=== PATIENT | female | born 1945 | race Caucasian/White ===

== ENCOUNTER 2023-03-18 10:57 | Observation (INO) | payer MEDICARE ==
[2023-03-18 11:27] LABS: #Eosinphils 0.2 thou/uL (0.0-0.7); %Basophils 0.3 % (0.0-1.0); %Eosinophils 2.1 % (0.0-10.0); %Lymphocytes 11.3 % (21.0-51.0); %Monocytes 13.9 % (0.0-10.0); %Neutrophils 71.8 % (42.0-75.0); Hematocrit 20.5 % (36.0-47.0); Hemoglobin 6.3 g/dL (12.0-16.0); Mean Corpuscular HGB CONC 30.7 g/dL (32.0-36.0); Mean Corpuscular Hemoglobin 32.3 pg (27.0-31.0); Mean Corpuscular Volume 105.1 fl (78.0-98.0); Mean Platelet Volume 9.1 fL (7.4-10.4); Platelet Count 224 10x3/uL (130-400); RBC Distribution Width 18.6 % (11.5-14.5); Red Blood Cell (RBC) Count 1.95 mill/uL (4.20-5.40)
[2023-03-18 11:50] LABS: ALT (SGPT) 14 U/L (8-55); AST (SGOT) 15 U/L (5-34); Albumin 3.5 g/dL (3.4-4.8); Alkaline Phosphatase 77 U/L (40-110); Anion Gap 11 mmol/L (10-20); BUN (Urea Nitrogen) 11 mg/dL (9.8-20.1); Bilirubin, Total 0.4 mg/dL (0.2-1.2); Calc. Creatinine Clearance 0 mL/min (70-130); Calcium 8.4 mg/dL (7.8-10.44); Carbon Dioxide 35 mmol/L (23-31); Chloride 97 mmol/L (98-107); Estimated GFR 32; Globulin 2.4 g/dL (2.4-3.5); Glucose 137 mg/dL (83-110); Potassium 3.2 mmol/L (3.5-5.1); Protein, Total 5.9 g/dL (5.8-8.1); Sodium 140 mmol/L (136-145)
[2023-03-18 13:00] LABS: Troponin I 0.069 ng/mL (< 0.028)
[2023-03-18 13:03] LABS: Acetaminophen Less than 10 mcg/mL (10.0-30.0); Alcohol Less than 10.0 mg/dL (Less than 10); Lipase 50 U/L (8-78); Magnesium 1.9 mg/dL (1.6-2.6); Salicylate Less than 8.0 mg/dL (15.0-30.0)
[2023-03-18 16:44] LABS: Troponin I 0.055 ng/mL (< 0.028)
[2023-03-18] MEDS ORDERED: Acetaminophen 650 MG Suppository PR PRN (16:55)
[2023-03-18] MEDS ORDERED: Acetaminophen 325 MG TAB PO PRN (16:55)
[2023-03-18] MEDS ORDERED: Dextrose 5% in Water 1,000 ML IV PRN (16:58)
[2023-03-18] MEDS ORDERED: Glucagon 1 MG/ML KIT IM PRN (16:58)
[2023-03-18] MEDS ORDERED: HumaLOG 300 UNITS/3 ML VIAL SC PRN ×2 (16:58)
[2023-03-18] MEDS ORDERED: Dextrose 50% Abboject 50 ML SYRINGE SLOW IVP PRN (16:58)
[2023-03-18] MEDS ORDERED: Gabapentin 300 MG CAP PO SCH (17:45)
[2023-03-18] MEDS ORDERED: HYDROcodone/Acetaminophen 10/325 mg Tablet ONE (18:15)
[2023-03-18] MEDS ORDERED: Gabapentin 300 MG CAP ONE (18:15)
[2023-03-18] MEDS: HYDROcodone/Acetaminophen 10/325 mg Tablet PO PRN (18:19)
[2023-03-18 19:30] LABS: Hematocrit 24.3 % (36.0-47.0); Hemoglobin 7.6 g/dL (12.0-16.0)
[2023-03-18 19:38] LABS: Potassium 3.5 mmol/L (3.5-5.1)
[2023-03-18 20:37] VITALS: BMI 37.3
[2023-03-18] MEDS ORDERED: Atorvastatin Calcium 10 MG TAB PO SCH (21:00)
[2023-03-18] MEDS: Amoxicillin/Potassium Clav 875 MG TAB PO SCH (22:21)
[2023-03-18] MEDS: Gabapentin 300 MG CAP PO SCH (22:22)
[2023-03-19] MEDS: HYDROcodone/Acetaminophen 10/325 mg Tablet PO PRN (02:34)
[2023-03-19 04:34] LABS: #Eosinphils 0.3 thou/uL (0.0-0.7); #Neutrophils 4.4 thou/uL (1.40-6.50); %Basophils 0.3 % (0.0-1.0); %Eosinophils 4.3 % (0.0-10.0); %Neutrophils 67.1 % (42.0-75.0); Hematocrit 25.3 % (36.0-47.0); Hemoglobin 7.7 g/dL (12.0-16.0); Mean Corpuscular HGB CONC 30.4 g/dL (32.0-36.0); Mean Corpuscular Hemoglobin 30.4 pg (27.0-31.0); Mean Platelet Volume 9.2 fL (7.4-10.4); Platelet Count 216 10x3/uL (130-400); RBC Distribution Width 20.5 % (11.5-14.5); Red Blood Cell (RBC) Count 2.53 mill/uL (4.20-5.40); White Blood Cell (WBC) Count 6.5 10x3/uL (4.8-10.8)
[2023-03-19 05:16] LABS: ALT (SGPT) 16 U/L (8-55); AST (SGOT) 16 U/L (5-34); Albumin 3.5 g/dL (3.4-4.8); Alkaline Phosphatase 74 U/L (40-110); Anion Gap 17 mmol/L (10-20); BUN (Urea Nitrogen) 24 mg/dL (9.8-20.1); Bilirubin, Total 0.6 mg/dL (0.2-1.2); Calc. Creatinine Clearance 22 mL/min (70-130); Calcium 8.6 mg/dL (7.8-10.44); Carbon Dioxide 28 mmol/L (23-31); Chloride 99 mmol/L (98-107); Estimated GFR 15; Globulin 2.5 g/dL (2.4-3.5); Glucose 155 mg/dL (83-110); Potassium 3.9 mmol/L (3.5-5.1); Sodium 140 mmol/L (136-145)
[2023-03-19] MEDS: Gabapentin 300 MG CAP PO SCH ×2 (08:52→14:53)
[2023-03-19] MEDS: Amoxicillin/Potassium Clav 875 MG TAB PO SCH (08:52)
[2023-03-19 18:00] VITALS: BP 165/74; TEMP 97.5
== END 2023-03-19 18:45 | disposition home or self-care (01) ==
LOC: ERS 10:57 → INTOOBSV 16:09 → ERHOLD 16:09 → 2NO 19:56
PROVIDERS: ADMIT Family Medicine; ATTEND Internal Medicine
DX: I13.2 Hypertensive heart and chronic kidney disease with heart failure and with stage 5 chronic kidney disease, or end stage renal disease (principal); N18.6 End stage renal disease; I50.9 Heart failure, unspecified; E11.22 Type 2 diabetes mellitus with diabetic chronic kidney disease; E11.42 Type 2 diabetes mellitus with diabetic polyneuropathy; D63.1 Anemia in chronic kidney disease; Z99.2 Dependence on renal dialysis; C85.10 Unspecified B-cell lymphoma, unspecified site; C64.9 Malignant neoplasm of unspecified kidney, except renal pelvis; F43.10 Post-traumatic stress disorder, unspecified; E66.9 Obesity, unspecified; F41.9 Anxiety disorder, unspecified; I42.8 Other cardiomyopathies; E78.5 Hyperlipidemia, unspecified; K31.84 Gastroparesis; Z95.5 Presence of coronary angioplasty implant and graft; Z90.49 Acquired absence of other specified parts of digestive tract; Z90.89 Acquired absence of other organs; Z90.710 Acquired absence of both cervix and uterus; Z87.891 Personal history of nicotine dependence; Z98.84 Bariatric surgery status; Z88.8 Allergy status to other drugs, medicaments and biological substances; Z91.013 Allergy to seafood
CPT/HCPCS: 36430 ×2; 70450; 80053; 80307; 82140; 82962 ×2; 83605; 83690; 83735; 83880; 84132; 84484 ×2; 85014; 85018; 85025; 86850; 86900; 86901; 86920; 93005; 97139; 99285; G0378; P9016 ×2; 36415; 36416; 84443

== ENCOUNTER 2023-04-07 06:08 | Day surgery (SDC) | payer MEDICARE, BC ==
[2023-04-05 14:34] VITALS: BMI 37.0
[2023-04-05 14:48] LABS: Hematocrit 25.2 % (34.9-44.5); Hemoglobin 7.7 g/dL (12.0-15.5); Mean Corpuscular HGB CONC 30.6 g/dL (32.0-36.0); Mean Corpuscular Hemoglobin 30.1 pg (27.0-33.0); Mean Corpuscular Volume 98.4 fl (81.6-98.3); Mean Platelet Volume 8.8 fl (7.4-10.4); Platelet Count 242 10x3/uL (150-450); RBC Distribution Width 18.5 % (11.5-14.5); Red Blood Cell (RBC) Count 2.56 10x6/uL (3.90-5.03); White Blood Cell (WBC) Count 5.9 10x3/uL (3.5-10.5)
[2023-04-05 15:09] LABS: PTT 28.5 sec (22.0-33.0)
[2023-04-05 15:13] LABS: Anion Gap 23 mmol/L (10-20); BUN (Urea Nitrogen) 57 mg/dL (9.8-20.1); Calc. Creatinine Clearance 15 mL/min (70-130); Calcium 8.7 mg/dL (7.8-10.44); Carbon Dioxide 23 mmol/L (23-31); Chloride 103 mmol/L (98-107); Estimated GFR 9; Glucose 183 mg/dL (83-110); Potassium 5.2 mmol/L (3.5-5.1); Sodium 144 mmol/L (136-145)
[2023-04-07] MEDS ORDERED: Gentamicin 80 MG/2 ML VIAL ONE (07:05)
[2023-04-07] MEDS ORDERED: CEFAZOLIN 2 GM VIAL ONE (07:05)
[2023-04-07] MEDS ORDERED: fentaNYL 50 mcg/mL 1 mL Vial ONE ×3 (09:00→13:50)
[2023-04-07] MEDS ORDERED: Ketamine In 0.9 % NaCl 50 MG/5 ML SYRINGE ONE (09:00)
[2023-04-07] MEDS ORDERED: diphenhydrAMINE 50 MG/ML VIAL ONE (10:01)
[2023-04-07] MEDS ORDERED: Iopamidol 370 76% 100 ML VIAL ONE (12:16)
[2023-04-07] MEDS ORDERED: HYDROcodone/Acetaminophen 5/325 mg Tablet ONE (14:44)
== END 2023-04-07 16:05 | disposition home or self-care (01) ==
LOC: SDC 06:08
PROVIDERS: ATTEND Internal Medicine Cardiovascular Disease
PROC: 0JH608Z Insertion of Defibrillator Generator into Chest Subcutaneous Tissue and Fascia, Open Approach (ICD-10-PCS; principal; 2023-04-07)
PROC: 0JH63FZ Insertion of Subcutaneous Defibrillator Lead into Chest Subcutaneous Tissue and Fascia, Percutaneous Approach (ICD-10-PCS; 2023-04-07)
DX: I48.0 Paroxysmal atrial fibrillation (principal); I44.7 Left bundle-branch block, unspecified; I13.2 Hypertensive heart and chronic kidney disease with heart failure and with stage 5 chronic kidney disease, or end stage renal disease; N18.6 End stage renal disease; I50.22 Chronic systolic (congestive) heart failure; I49.5 Sick sinus syndrome; Z99.2 Dependence on renal dialysis; I25.10 Atherosclerotic heart disease of native coronary artery without angina pectoris; I42.8 Other cardiomyopathies; Z79.82 Long term (current) use of aspirin; Z79.899 Other long term (current) drug therapy; Z88.2 Allergy status to sulfonamides; Z91.013 Allergy to seafood; Z88.4 Allergy status to anesthetic agent; Z88.8 Allergy status to other drugs, medicaments and biological substances; Z87.891 Personal history of nicotine dependence
CPT/HCPCS: 33225; 33249; 71045; 80048; 85027; 85610; 85730; 93005; C1725; C1769 ×2; C1777; C1882; C1898; C1900; J3010; C1894; J1580; J3490

== ENCOUNTER 2023-04-13 14:06 | Observation (INO) | payer MEDICARE, BC ==
[2023-04-13 15:09] LABS: #Eosinphils 0.4 thou/uL (0.0-0.7); #Monocytes 0.8 thou/uL (0.11-0.59); #Neutrophils 4.4 thou/uL (1.40-6.50); %Basophils 0.5 % (0.0-1.0); %Lymphocytes 10.4 % (21.0-51.0); %Neutrophils 69.5 % (42.0-75.0); Hematocrit 22.8 % (36.0-47.0); Mean Corpuscular HGB CONC 30.7 g/dL (32.0-36.0); Mean Corpuscular Volume 100.9 fl (78.0-98.0); Mean Platelet Volume 9.2 fL (7.4-10.4); Platelet Count 195 10x3/uL (130-400); RBC Distribution Width 17.8 % (11.5-14.5); Red Blood Cell (RBC) Count 2.26 mill/uL (4.20-5.40); White Blood Cell (WBC) Count 6.3 10x3/uL (4.8-10.8)
[2023-04-13 15:22] LABS: INR-International Normal Ratio 1.4; Prothrombin Time 16.8 sec (12.0-14.7)
[2023-04-13 15:23] LABS: PTT 39.8 sec (22.9-36.1)
[2023-04-13 15:34] LABS: ALT (SGPT) 7 U/L (8-55); AST (SGOT) 15 U/L (5-34); Albumin 3.6 g/dL (3.4-4.8); Alkaline Phosphatase 120 U/L (40-110); Anion Gap 15 mmol/L (10-20); BUN (Urea Nitrogen) 21 mg/dL (9.8-20.1); Bilirubin, Total 0.5 mg/dL (0.2-1.2); Calc. Creatinine Clearance 0 mL/min (70-130); Calcium 8.5 mg/dL (7.8-10.44); Carbon Dioxide 33 mmol/L (23-31); Chloride 98 mmol/L (98-107); Estimated GFR 14; Globulin 2.4 g/dL (2.4-3.5); Glucose 141 mg/dL (83-110); Potassium 4.2 mmol/L (3.5-5.1); Sodium 142 mmol/L (136-145)
[2023-04-13] MEDS ORDERED: Ondansetron ODT 4 MG TAB PO PRN (16:53)
[2023-04-13] MEDS ORDERED: Ondansetron PF 4 MG/2 ML Vial IVP PRN (16:53)
[2023-04-13] MEDS ORDERED: Dextrose 50% Abboject 50 ML SYRINGE SLOW IVP PRN (18:37)
[2023-04-13] MEDS ORDERED: HumaLOG 300 UNITS/3 ML VIAL SC PRN ×2 (18:37)
[2023-04-13] MEDS ORDERED: Dextrose 5% in Water 1,000 ML IV PRN (18:37)
[2023-04-13] MEDS ORDERED: Glucagon 1 MG/ML KIT IM PRN (18:37)
[2023-04-13] MEDS ORDERED: Loratadine 10 MG TAB PO PRN (18:42)
[2023-04-13] MEDS: Gabapentin 300 MG CAP PO SCH (20:49)
[2023-04-13] MEDS: Apixaban 5 MG TAB PO SCH (20:49)
[2023-04-13] MEDS: Atorvastatin Calcium 10 MG TAB PO SCH (20:49)
[2023-04-13] MEDS: Pramipexole Di-HCl 0.25 MG TAB PO SCH (20:50)
[2023-04-13] MEDS: Cephalexin 250 MG CAP PO SCH (20:50)
[2023-04-13 22:05] VITALS: BMI 39.6
[2023-04-14] MEDS: HYDROcodone/Acetaminophen 10/325 mg Tablet PO PRN (01:28)
[2023-04-14] MEDS: Cephalexin 250 MG CAP PO SCH (04:36)
[2023-04-14 04:59] LABS: #Eosinphils 0.4 thou/uL (0.0-0.7); #Monocytes 0.9 thou/uL (0.11-0.59); #Neutrophils 4.1 thou/uL (1.40-6.50); %Basophils 0.5 % (0.0-1.0); %Eosinophils 6.3 % (0.0-10.0); %Lymphocytes 14.7 % (21.0-51.0); %Monocytes 13.4 % (0.0-10.0); %Neutrophils 64.5 % (42.0-75.0); Hematocrit 27.7 % (36.0-47.0); Hemoglobin 8.6 g/dL (12.0-16.0); Mean Platelet Volume 9.3 fL (7.4-10.4); Platelet Count 203 10x3/uL (130-400); RBC Distribution Width 18.6 % (11.5-14.5); Red Blood Cell (RBC) Count 2.87 mill/uL (4.20-5.40); White Blood Cell (WBC) Count 6.3 10x3/uL (4.8-10.8)
[2023-04-14 05:04] LABS: Mean Corpuscular Volume 96.5 fl (78.0-98.0)
[2023-04-14 05:25] LABS: Anion Gap 16 mmol/L (10-20); BUN (Urea Nitrogen) 31 mg/dL (9.8-20.1); Calc. Creatinine Clearance 19 mL/min (70-130); Calcium 8.5 mg/dL (7.8-10.44); Carbon Dioxide 30 mmol/L (23-31); Chloride 100 mmol/L (98-107); Estimated GFR 11; Glucose 140 mg/dL (83-110); Potassium 4.5 mmol/L (3.5-5.1); Sodium 141 mmol/L (136-145)
[2023-04-14 07:37] VITALS: BP 138/79; TEMP 98.8
[2023-04-14] MEDS: Multivitamin w/Zinc Stress 1 TAB PO SCH (08:31)
[2023-04-14] MEDS: Aspirin Chewable 81 MG TAB PO SCH (08:31)
[2023-04-14] MEDS: Folic Acid/Vit B Comp W-C PO SCH (08:31)
[2023-04-14] MEDS ORDERED: Midodrine HCl 5 MG TAB PO SCH (21:00)
[2023-04-15] MEDS ORDERED: Midodrine HCl 5 MG TAB PO SCH (09:00)
[2023-04-19] MEDS ORDERED: Ergocalciferol 1.25 MG(50,000 UNITS) CAP PO SCH (09:00)
== END 2023-04-14 15:06 | disposition home or self-care (01) ==
LOC: ERS 14:06 → T4-B 16:53
PROVIDERS: ADMIT Internal Medicine; ATTEND Hospitalist
DX: N18.6 End stage renal disease (principal); D63.1 Anemia in chronic kidney disease
CPT/HCPCS: 36430 ×2; 80048; 80053; 82962 ×2; 85014; 85018; 85025 ×2; 85610; 85730; 86850; 86900; 86901; 86920; 93005; 99285; G0378 ×3; P9016 ×2; 36415; 36416

== ENCOUNTER 2023-05-15 13:56 | Inpatient (IN) | payer MEDICARE, BC ==
[2023-05-15 17:38] LABS: #Eosinphils 0.2 thou/uL (0.0-0.7); #Monocytes 0.8 thou/uL (0.11-0.59); #Neutrophils 2.6 thou/uL (1.40-6.50); %Basophils 0.5 % (0.0-1.0); %Eosinophils 4.8 % (0.0-10.0); %Lymphocytes 17.5 % (21.0-51.0); %Monocytes 17.2 % (0.0-10.0); %Neutrophils 59.1 % (42.0-75.0); Hematocrit 20.5 % (36.0-47.0); Mean Corpuscular HGB CONC 29.3 g/dL (32.0-36.0); Mean Corpuscular Hemoglobin 30.6 pg (27.0-31.0); Mean Corpuscular Volume 104.6 fl (78.0-98.0); Mean Platelet Volume 9.1 fL (7.4-10.4); Platelet Count 199 10x3/uL (130-400); Red Blood Cell (RBC) Count 1.96 mill/uL (4.20-5.40); White Blood Cell (WBC) Count 4.4 10x3/uL (4.8-10.8)
[2023-05-15 18:06] LABS: ALT (SGPT) 13 U/L (8-55); AST (SGOT) 13 U/L (5-34); Albumin 3.3 g/dL (3.4-4.8); Alkaline Phosphatase 103 U/L (40-110); Anion Gap 22 mmol/L (10-20); BUN (Urea Nitrogen) 58 mg/dL (9.8-20.1); Bilirubin, Total 0.3 mg/dL (0.2-1.2); Calc. Creatinine Clearance 0 mL/min (70-130); Calcium 8.7 mg/dL (7.8-10.44); Carbon Dioxide 25 mmol/L (23-31); Chloride 99 mmol/L (98-107); Estimated GFR 7; Globulin 1.7 g/dL (2.4-3.5); Glucose 123 mg/dL (83-110); Potassium 4.9 mmol/L (3.5-5.1); Sodium 141 mmol/L (136-145)
[2023-05-15 18:15] LABS: INR-International Normal Ratio 1.2; Prothrombin Time 15.7 sec (12.0-14.7)
[2023-05-15 18:16] LABS: PTT 35.4 sec (22.9-36.1)
[2023-05-15] MEDS ORDERED: Acetaminophen 325 MG TAB PO PRN (20:30)
[2023-05-15] MEDS ORDERED: Ondansetron ODT 4 MG TAB SL PRN (20:30)
[2023-05-15] MEDS ORDERED: Ondansetron PF 4 MG/2 ML Vial IVP PRN (20:30)
[2023-05-15] MEDS ORDERED: Cefepime 2 GM VIAL ONE (20:57)
[2023-05-15] MEDS ORDERED: Dextrose 5% in Water 1,000 ML IV PRN (21:02)
[2023-05-15] MEDS ORDERED: Dextrose 50% Abboject 50 ML SYRINGE SLOW IVP PRN (21:02)
[2023-05-15] MEDS ORDERED: Glucagon 1 MG/ML KIT IM PRN (21:02)
[2023-05-15] MEDS ORDERED: Vancomycin Dialysis Sliding Scale (Wt > 99) FS SCH (23:00)
[2023-05-15] MEDS: Vancomycin (BATCH) 2 GM in Premix 1 BAG IVPB SCH (23:32)
[2023-05-15] MEDS ORDERED: Vancomycin 1 GM/200 ML (FROZEN) BAG ONE (23:35)
[2023-05-15] MEDS ORDERED: HYDROcodone/Acetaminophen 10/325 mg Tablet ONE (23:58)
[2023-05-16] MEDS: HYDROcodone/Acetaminophen 10/325 mg Tablet PO PRN
[2023-05-16 01:03] LABS: Hematocrit 25.2 % (36.0-47.0); Hemoglobin 7.4 g/dL (12.0-16.0)
[2023-05-16] MEDS ORDERED: HumaLOG 300 UNITS/3 ML VIAL ONE (02:39)
[2023-05-16] MEDS: HumaLOG 300 UNITS/3 ML VIAL SC PRN (03:02)
[2023-05-16] MEDS ORDERED: Vancomycin 1 GM/200 ML (FROZEN) BAG ONE (03:10)
[2023-05-16] MEDS: Vancomycin 1 GM in Premix 1 BAG IVPB SCH (03:29)
[2023-05-16 04:37] LABS: #Eosinphils 0.2 thou/uL (0.0-0.7); #Monocytes 0.7 thou/uL (0.11-0.59); #Neutrophils 3.7 thou/uL (1.40-6.50); %Basophils 0.2 % (0.0-1.0); %Eosinophils 4.5 % (0.0-10.0); %Lymphocytes 12.6 % (21.0-51.0); %Monocytes 13.2 % (0.0-10.0); %Neutrophils 68.6 % (42.0-75.0); Hemoglobin 7.3 g/dL (12.0-16.0); Mean Corpuscular HGB CONC 30.4 g/dL (32.0-36.0); Mean Corpuscular Hemoglobin 30.9 pg (27.0-31.0); Mean Corpuscular Volume 101.7 fl (78.0-98.0); Mean Platelet Volume 9.1 fL (7.4-10.4); Platelet Count 215 10x3/uL (130-400); RBC Distribution Width 21.6 % (11.5-14.5); Red Blood Cell (RBC) Count 2.36 mill/uL (4.20-5.40); White Blood Cell (WBC) Count 5.4 10x3/uL (4.8-10.8)
[2023-05-16] MEDS ORDERED: HYDROcodone/Acetaminophen 10/325 mg Tablet ONE (08:07)
[2023-05-16 08:44] LABS: Anion Gap 27 mmol/L (10-20); BUN (Urea Nitrogen) 61 mg/dL (9.8-20.1); Calc. Creatinine Clearance 13 mL/min (70-130); Calcium 8.8 mg/dL (7.8-10.44); Carbon Dioxide 15 mmol/L (23-31); Chloride 100 mmol/L (98-107); Estimated GFR 7; Glucose 148 mg/dL (83-110); Sodium 137 mmol/L (136-145)
[2023-05-16] MEDS ORDERED: Aspirin Chewable 81 MG TAB ONE (09:35)
[2023-05-16 10:48] LABS: HBSAg Index 0.19 S/CO (0-0.99); Hep B Surf Ag Non-Reactive S/CO (NonReactive); Hep C IgG Ab Non-Reactive S/CO (NonReactive); Hep C Index 0.16 S/CO (0-0.79)
[2023-05-16 11:04] LABS: HBSAB Concentration 98.99 mIU/mL; Hep B Surf AB Reactive (NonReactive)
[2023-05-16 11:58] LABS: Hep B Core Total Ab Reactive (NonReactive); Hep B Core Total Index 5.42 S/CO (0-0.79)
[2023-05-16] MEDS: Aspirin Chewable 81 MG TAB PO SCH (15:58)
[2023-05-16] MEDS: Folic Acid/Vit B Comp W-C PO SCH (15:58)
[2023-05-16] MEDS ORDERED: Cefepime 1 GM in Sodium Chloride 0.9% 100 ML IVPB SCH (21:00)
[2023-05-16] MEDS: Atorvastatin Calcium 10 MG TAB PO SCH (22:07)
[2023-05-16] MEDS: Epoetin (ESRD) 10,000 UNITS/ML VIAL IVP SCH (22:09)
[2023-05-16] MEDS: Gabapentin 300 MG CAP PO SCH (22:20)
[2023-05-16 23:49] LABS: Vancomycin, Random 16.8 ug/mL (See Comment)
[2023-05-17 03:24] LABS: #Eosinphils 0.2 thou/uL (0.0-0.7); #Monocytes 0.6 thou/uL (0.11-0.59); %Basophils 0.5 % (0.0-1.0); %Eosinophils 3.8 % (0.0-10.0); %Lymphocytes 12.1 % (21.0-51.0); %Neutrophils 70.1 % (42.0-75.0); Hematocrit 23.2 % (36.0-47.0); Hemoglobin 7.2 g/dL (12.0-16.0); Mean Corpuscular Hemoglobin 30.3 pg (27.0-31.0); Mean Platelet Volume 8.8 fL (7.4-10.4); Platelet Count 170 10x3/uL (130-400); RBC Distribution Width 20.8 % (11.5-14.5); Red Blood Cell (RBC) Count 2.38 mill/uL (4.20-5.40); White Blood Cell (WBC) Count 4.2 10x3/uL (4.8-10.8)
[2023-05-17 03:48] LABS: Mean Corpuscular Volume 97.5 fl (78.0-98.0)
[2023-05-17] MEDS: Gabapentin 300 MG CAP PO SCH (05:38)
[2023-05-17 05:44] LABS: Anion Gap 18 mmol/L (10-20); BUN (Urea Nitrogen) 31 mg/dL (9.8-20.1); Calc. Creatinine Clearance 20 mL/min (70-130); Calcium 8.5 mg/dL (7.8-10.44); Carbon Dioxide 25 mmol/L (23-31); Chloride 99 mmol/L (98-107); Estimated GFR 12; Glucose 174 mg/dL (83-110); Potassium 3.9 mmol/L (3.5-5.1); Sodium 138 mmol/L (136-145)
[2023-05-17] MEDS: Ergocalciferol 1.25 MG(50,000 UNITS) CAP PO SCH (08:21)
[2023-05-17 13:46] VITALS: BMI 38.6
[2023-05-17] MEDS: HumaLOG 300 UNITS/3 ML VIAL SC PRN (17:37)
[2023-05-18 06:10] LABS: #Eosinphils 0.3 thou/uL (0.0-0.7); #Monocytes 0.8 thou/uL (0.11-0.59); #Neutrophils 2.7 thou/uL (1.40-6.50); %Basophils 0.4 % (0.0-1.0); %Lymphocytes 18.3 % (21.0-51.0); %Monocytes 16.3 % (0.0-10.0); %Neutrophils 58.4 % (42.0-75.0); Hematocrit 30.2 % (36.0-47.0); Hemoglobin 9.1 g/dL (12.0-16.0); Mean Corpuscular HGB CONC 30.1 g/dL (32.0-36.0); Mean Corpuscular Hemoglobin 29.6 pg (27.0-31.0); Mean Corpuscular Volume 98.4 fl (78.0-98.0); Platelet Count 213 10x3/uL (130-400); RBC Distribution Width 20.4 % (11.5-14.5); Red Blood Cell (RBC) Count 3.07 mill/uL (4.20-5.40); White Blood Cell (WBC) Count 4.7 10x3/uL (4.8-10.8)
[2023-05-18 06:31] LABS: Anion Gap 20 mmol/L (10-20); BUN (Urea Nitrogen) 44 mg/dL (9.8-20.1); Calc. Creatinine Clearance 15 mL/min (70-130); Calcium 9.1 mg/dL (7.8-10.44); Carbon Dioxide 24 mmol/L (23-31); Chloride 100 mmol/L (98-107); Estimated GFR 8; Glucose 115 mg/dL (83-110); Potassium 4.1 mmol/L (3.5-5.1); Sodium 140 mmol/L (136-145)
[2023-05-18] MEDS ORDERED: Heparin 10,000 UNITS/ 10 ML VIAL ONE (06:53)
[2023-05-18] MEDS: EPOETIN ALFA-EPBX (ESRD) 10,000 UNITS/ML VIAL IVP SCH (13:07)
[2023-05-18] MEDS ORDERED: Vancomycin 1.5 GM in Sodium Chloride 0.9% 250 ML 300 ML IVPB SCH (13:30)
[2023-05-18] MEDS ORDERED: Vancomycin Dialysis Sliding Scale (Wt > 99) FS SCH (14:00)
[2023-05-18 14:16] LABS: Vancomycin, Random 14.7 ug/mL (See Comment)
[2023-05-18] MEDS: metroNIDAZOLE 500 MG TAB PO SCH (15:06)
[2023-05-18] MEDS: Vancomycin (BATCH) 1.25 GM in Premix 1 BAG IVPB SCH (17:34)
[2023-05-18] MEDS: Cefepime 1 GM in Sodium Chloride 0.9% 100 ML IVPB SCH (20:35)
[2023-05-18] MEDS: Loratadine 10 MG TAB PO PRN (20:42)
[2023-05-19] MEDS: Ondansetron PF 4 MG/2 ML Vial IVP PRN (01:07)
[2023-05-19 04:53] LABS: #Eosinphils 0.3 thou/uL (0.0-0.7); #Monocytes 0.8 thou/uL (0.11-0.59); %Basophils 0.4 % (0.0-1.0); %Eosinophils 6.4 % (0.0-10.0); %Lymphocytes 13.6 % (21.0-51.0); %Monocytes 16.3 % (0.0-10.0); %Neutrophils 62.7 % (42.0-75.0); Hematocrit 29.2 % (36.0-47.0); Hemoglobin 8.8 g/dL (12.0-16.0); Mean Corpuscular HGB CONC 30.1 g/dL (32.0-36.0); Mean Corpuscular Hemoglobin 30.3 pg (27.0-31.0); Mean Corpuscular Volume 100.7 fl (78.0-98.0); Mean Platelet Volume 9.2 fL (7.4-10.4); Platelet Count 219 10x3/uL (130-400); RBC Distribution Width 19.9 % (11.5-14.5); White Blood Cell (WBC) Count 4.8 10x3/uL (4.8-10.8)
[2023-05-19 05:24] LABS: Anion Gap 16 mmol/L (10-20); BUN (Urea Nitrogen) 27 mg/dL (9.8-20.1); Calc. Creatinine Clearance 21 mL/min (70-130); Calcium 8.9 mg/dL (7.8-10.44); Carbon Dioxide 27 mmol/L (23-31); Chloride 102 mmol/L (98-107); Estimated GFR 12; Glucose 126 mg/dL (83-110); Potassium 4.2 mmol/L (3.5-5.1); Sodium 141 mmol/L (136-145)
[2023-05-20] MEDS: Acetaminophen 325 MG TAB PO PRN (01:01)
[2023-05-20 04:42] LABS: #Eosinphils 0.4 thou/uL (0.0-0.7); #Monocytes 0.8 thou/uL (0.11-0.59); #Neutrophils 3.1 thou/uL (1.40-6.50); %Basophils 0.4 % (0.0-1.0); %Eosinophils 8.5 % (0.0-10.0); %Lymphocytes 13.5 % (21.0-51.0); %Neutrophils 61.8 % (42.0-75.0); Hematocrit 27.1 % (36.0-47.0); Hemoglobin 8.2 g/dL (12.0-16.0); Mean Corpuscular HGB CONC 30.3 g/dL (32.0-36.0); Mean Corpuscular Hemoglobin 30.8 pg (27.0-31.0); Mean Corpuscular Volume 101.9 fl (78.0-98.0); Mean Platelet Volume 9.1 fL (7.4-10.4); Platelet Count 192 10x3/uL (130-400); RBC Distribution Width 19.2 % (11.5-14.5); Red Blood Cell (RBC) Count 2.66 mill/uL (4.20-5.40); White Blood Cell (WBC) Count 5.1 10x3/uL (4.8-10.8)
[2023-05-20 05:24] LABS: Anion Gap 14 mmol/L (10-20); BUN (Urea Nitrogen) 39 mg/dL (9.8-20.1); Calc. Creatinine Clearance 16 mL/min (70-130); Calcium 9.1 mg/dL (7.8-10.44); Carbon Dioxide 26 mmol/L (23-31); Chloride 103 mmol/L (98-107); Estimated GFR 9; Glucose 117 mg/dL (83-110); Potassium 4.3 mmol/L (3.5-5.1); Sodium 139 mmol/L (136-145)
[2023-05-20] MEDS ORDERED: Heparin 10,000 UNITS/ 10 ML VIAL ONE (06:54)
[2023-05-20 07:56] LABS: Vancomycin, Random 20.7 ug/mL (See Comment)
[2023-05-20] MEDS: Vancomycin HCl 500 MG in Sodium Chloride 0.9% 100 ML IVPB SCH (17:25)
[2023-05-21 08:26] VITALS: TEMP 98.7
[2023-05-21 13:20] VITALS: BP 119/76
[2023-05-21] MEDS: Ondansetron ODT 4 MG TAB PO PRN (15:19)
== END 2023-05-21 15:29 | DRG 551 ==
LOC: ERS 13:56 → ERHOLD 20:17 → OBSVTOIN 05-16 10:10 → T4-A 05-16 12:34
PROVIDERS: ADMIT Student in an Organized Health Care Education/Training Program; ATTEND Internal Medicine
DX: M46.47 Discitis, unspecified, lumbosacral region (principal); N18.6 End stage renal disease; S32.059A Unspecified fracture of fifth lumbar vertebra, initial encounter for closed fracture; I50.42 Chronic combined systolic (congestive) and diastolic (congestive) heart failure; M46.27 Osteomyelitis of vertebra, lumbosacral region; C64.9 Malignant neoplasm of unspecified kidney, except renal pelvis; E11.69 Type 2 diabetes mellitus with other specified complication; I25.5 Ischemic cardiomyopathy; I25.10 Atherosclerotic heart disease of native coronary artery without angina pectoris; E11.22 Type 2 diabetes mellitus with diabetic chronic kidney disease; F41.9 Anxiety disorder, unspecified; I48.0 Paroxysmal atrial fibrillation; D63.1 Anemia in chronic kidney disease; E11.621 Type 2 diabetes mellitus with foot ulcer; W19.XXXA Unspecified fall, initial encounter; Z68.38 Body mass index [BMI] 38.0-38.9, adult; E66.01 Morbid (severe) obesity due to excess calories; Z95.9 Presence of cardiac and vascular implant and graft, unspecified; Z79.82 Long term (current) use of aspirin; Z90.49 Acquired absence of other specified parts of digestive tract; Z90.710 Acquired absence of both cervix and uterus; Z98.84 Bariatric surgery status; Z99.2 Dependence on renal dialysis
CPT/HCPCS: 36415; 36416; 36430; 70450; 71260; 72125; 72128; 72131; 74177; 80048; 80053; 80202; 85014; 85018; 85025; 85610; 85730; 86140; 86704; 86850; 86900; 86901; 87040; 90935; 93005; 96365; 96366; 96367; 97139; G0257; J0692; J1644; J1815; J2405; J3370; J3370-JW; J3490; P9016; Q0162; Q4081; Q5105

== ENCOUNTER 2023-06-08 11:07 | Emergency (ER) | payer MEDICARE, BC ==
[2023-06-08 12:00] LABS: #Eosinphils 0.4 thou/uL (0.0-0.7); #Monocytes 0.7 thou/uL (0.11-0.59); #Neutrophils 2.5 thou/uL (1.40-6.50); %Basophils 0.5 % (0.0-1.0); %Eosinophils 8.1 % (0.0-10.0); %Lymphocytes 16.2 % (21.0-51.0); %Monocytes 16.7 % (0.0-10.0); %Neutrophils 57.8 % (42.0-75.0); Hematocrit 24.3 % (36.0-47.0); Hemoglobin 7.3 g/dL (12.0-16.0); Mean Platelet Volume 9.2 fL (7.4-10.4); Platelet Count 207 10x3/uL (130-400); RBC Distribution Width 17.3 % (11.5-14.5); Red Blood Cell (RBC) Count 2.43 mill/uL (4.20-5.40); White Blood Cell (WBC) Count 4.3 10x3/uL (4.8-10.8)
[2023-06-08 12:24] LABS: ALT (SGPT) 22 U/L (8-55); AST (SGOT) 33 U/L (5-34); Albumin 3.7 g/dL (3.4-4.8); Alkaline Phosphatase 126 U/L (40-110); Anion Gap 12 mmol/L (10-20); BUN (Urea Nitrogen) 14 mg/dL (9.8-20.1); Bilirubin, Total 0.5 mg/dL (0.2-1.2); Calc. Creatinine Clearance 0 mL/min (70-130); Calcium 9.3 mg/dL (7.8-10.44); Carbon Dioxide 34 mmol/L (23-31); Chloride 99 mmol/L (98-107); Estimated GFR 23; Globulin 2.2 g/dL (2.4-3.5); Glucose 113 mg/dL (83-110); Potassium 4.3 mmol/L (3.5-5.1); Protein, Total 5.9 g/dL (5.8-8.1); Sodium 141 mmol/L (136-145)
== END 2023-06-08 12:43 | disposition home or self-care (01) ==
LOC: ERS 11:07
DX: T36.91XA Poisoning by unspecified systemic antibiotic, accidental (unintentional), initial encounter (principal); I48.91 Unspecified atrial fibrillation; N18.9 Chronic kidney disease, unspecified; E11.22 Type 2 diabetes mellitus with diabetic chronic kidney disease
CPT/HCPCS: 36415; 70450; 80053; 85025; 93005

== ENCOUNTER 2023-08-24 10:52 | Outpatient (CLI) | payer MEDICARE, BC | END 2023-08-24 10:53 | disposition home or self-care (01) | LOC: BICRAD 10:52 | PROVIDERS: ATTEND Surgery | DX: M46.26 Osteomyelitis of vertebra, lumbar region (principal); M43.17 Spondylolisthesis, lumbosacral region | CPT/HCPCS: 72100 ==

== ENCOUNTER 2023-09-15 12:21 | Outpatient (CLI) | payer MEDICARE, BC | END 2023-09-15 12:22 | disposition home or self-care (01) | LOC: BICCT 12:21 | PROVIDERS: ATTEND Surgery | DX: M43.16 Spondylolisthesis, lumbar region (principal); M46.26 Osteomyelitis of vertebra, lumbar region | CPT/HCPCS: 72131 ==

== ENCOUNTER 2023-09-19 01:34 | Inpatient (IN) | payer MEDICARE, BC ==
[2023-09-19 02:05] LABS: #Basophils Less than 0.03 10x3/uL (0.0-0.2); %Basophils 0.1 % (0.0-1.0); %Eosinophils 0.6 % (0.0-10.0); %Lymphocytes 3.5 % (21.0-51.0); %Monocytes 7.6 % (0.0-10.0); %Neutrophils 87.8 % (42.0-75.0); Hematocrit 27.3 % (36.0-47.0); Hemoglobin 8.2 g/dL (12.0-16.0); Mean Corpuscular Hemoglobin 28.9 pg (27.0-31.0); Mean Corpuscular Volume 96.1 fL (78.0-98.0); Mean Platelet Volume 8.9 fL (7.4-10.4); Platelet Count 240 10x3/uL (130-400); RBC Distribution Width 17.1 % (11.5-14.5); Red Blood Cell (RBC) Count 2.84 mill/uL (4.20-5.40)
[2023-09-19 02:25] LABS: ALT (SGPT) 29 U/L (8-55); AST (SGOT) 35 U/L (5-34); Albumin 3.2 g/dL (3.4-4.8); Alkaline Phosphatase 154 U/L (40-110); Anion Gap 22 mmol/L (10-20); BUN (Urea Nitrogen) 61 mg/dL (9.8-20.1); Bilirubin, Total 0.4 mg/dL (0.2-1.2); Calc. Creatinine Clearance 0 mL/min (70-130); Calcium 9.4 mg/dL (7.8-10.44); Carbon Dioxide 21 mmol/L (23-31); Chloride 101 mmol/L (98-107); Estimated GFR 8; Globulin 3.1 g/dL (2.4-3.5); Glucose 191 mg/dL (83-110); Potassium 4.4 mmol/L (3.5-5.1); Protein, Total 6.3 g/dL (5.8-8.1); Sodium 140 mmol/L (136-145)
[2023-09-19 02:31] LABS: Troponin I 0.064 ng/mL (< 0.028)
[2023-09-19] MEDS ORDERED: Vancomycin 1 GM/200 ML (FROZEN) BAG ONE (02:33)
[2023-09-19] MEDS ORDERED: Sodium Chloride 0.9% 100 ML ONE (02:33)
[2023-09-19] MEDS ORDERED: Cefepime 2 GM VIAL ONE (02:33)
[2023-09-19 02:37] LABS: Lipase 18 U/L (8-78); Magnesium 2.1 mg/dL (1.6-2.6)
[2023-09-19 02:56] LABS: Actual Bicarbonate (HCO3v) 25.5 mEq/L (22-28); Base Excess 0.6 mEq/L (-2.0 to +3.0); Calcium, Ionized (venous) 1.08 mmol/L (1.16-1.32); Chloride (VBG) 99 mmol/L (98-106); Hematocrit-VBG 27 % (36.0-47.0); Hemoglobin (Hb) 9.2 g/dL (11.7-16.1); Sodium 140 mmol/L (133-146)
[2023-09-19] MEDS ORDERED: Acetaminophen 500 MG TAB ONE (04:09)
[2023-09-19 04:43] VITALS: BMI 37.9
[2023-09-19 06:29] LABS: Troponin I 0.432 ng/mL (< 0.028)
[2023-09-19] MEDS ORDERED: HYDROcodone/Acetaminophen 10/325 mg Tablet PO PRN (09:29)
[2023-09-19] MEDS ORDERED: HumaLOG 300 UNITS/3 ML VIAL SC PRN ×2 (09:30)
[2023-09-19] MEDS ORDERED: Dextrose 50% Abboject 50 ML SYRINGE SLOW IVP PRN (09:30)
[2023-09-19] MEDS ORDERED: Glucagon 1 MG/ML KIT IM PRN (09:30)
[2023-09-19] MEDS ORDERED: Ondansetron PF 4 MG/2 ML Vial IVP PRN (09:30)
[2023-09-19] MEDS ORDERED: Dextrose 5% in Water 1,000 ML IV PRN (09:30)
[2023-09-19] MEDS ORDERED: Ondansetron ODT 4 MG TAB PO PRN (09:30)
[2023-09-19] MEDS ORDERED: Senokot S 8.6-50 MG TAB PO PRN (09:30)
[2023-09-19] MEDS ORDERED: Benzonatate 100 MG CAP PO PRN (09:39)
[2023-09-19 10:17] LABS: Troponin I 0.687 ng/mL (< 0.028)
[2023-09-19] MEDS ORDERED: Acetaminophen 325 MG TAB ONE (11:09)
[2023-09-19] MEDS: Acetaminophen 325 MG TAB PO PRN (11:12)
[2023-09-19] MEDS ORDERED: VANCOMYCIN IVPB PRN (13:23)
[2023-09-19] MEDS ORDERED: Vancomycin Diaylsis Sliding Scale (Wt 71-99) FS SCH (13:30)
[2023-09-19] MEDS ORDERED: Cefepime 2 GM in Sodium Chloride 0.9% 100 ML IVPB SCH (14:30)
[2023-09-19] MEDS: Vancomycin HCl 750 MG in Sodium Chloride 0.9% 250 ML 250 ML IVPB SCH (15:04)
[2023-09-19] MEDS ORDERED: Vancomycin 1 GM in Premix 1 BAG IVPB SCH (15:30)
[2023-09-19] MEDS: Gabapentin 300 MG CAP PO SCH (16:35)
[2023-09-19 17:44] LABS: Troponin I 0.816 ng/mL (< 0.028)
[2023-09-19] MEDS: Apixaban 5 MG TAB PO SCH (21:14)
[2023-09-19] MEDS: Atorvastatin Calcium 10 MG TAB PO SCH (21:14)
[2023-09-19] MEDS: Famotidine 20 MG TAB PO SCH (21:14)
[2023-09-19] MEDS: Epoetin (ESRD) 10,000 UNITS/ML VIAL SC SCH (21:17)
[2023-09-20] MEDS: Aspirin Chewable 81 MG TAB PO SCH (09:16)
[2023-09-20] MEDS: Gabapentin 300 MG CAP PO SCH (09:17)
[2023-09-20] MEDS: Azithromycin 500 MG in Sodium Chloride 0.9% 250 ML 250 ML IVPB SCH (11:20)
[2023-09-20] MEDS: Cefepime 0.5 GM, Admixture Fee 1 EACH in Sodium Chloride 0.9% 100 ML IVPB SCH (18:14)
[2023-09-20] MEDS: Cefepime 1 GM in Sodium Chloride 0.9% 100 ML IVPB SCH (18:21)
[2023-09-20] MEDS: Midodrine HCl 5 MG TAB PO SCH (21:09)
[2023-09-20] MEDS: HYDROcodone/Acetaminophen 10/325 mg Tablet PO PRN (21:12)
[2023-09-21] MEDS: Midodrine HCl 5 MG TAB PO SCH (06:08)
[2023-09-21] MEDS: Doxycycline 100 MG CAP PO SCH (13:09)
[2023-09-21] MEDS: Acetaminophen 650 MG Suppository PR PRN (13:45)
[2023-09-21 13:46] VITALS: TEMP 99.7
[2023-09-21 16:01] VITALS: BP 142/84
== END 2023-09-21 17:50 | disposition home or self-care (01) | DRG 193 ==
LOC: ERS 01:34 → ERHOLD 04:02 → 2NO 04:06 → UNDODISIN 18:48
PROVIDERS: ADMIT Student in an Organized Health Care Education/Training Program; ATTEND Internal Medicine
DX: J18.9 Pneumonia, unspecified organism (principal); J96.01 Acute respiratory failure with hypoxia; N18.6 End stage renal disease; I13.2 Hypertensive heart and chronic kidney disease with heart failure and with stage 5 chronic kidney disease, or end stage renal disease; I50.22 Chronic systolic (congestive) heart failure; I5A Non-ischemic myocardial injury (non-traumatic); R65.10 Systemic inflammatory response syndrome (SIRS) of non-infectious origin without acute organ dysfunction; E11.40 Type 2 diabetes mellitus with diabetic neuropathy, unspecified; I48.0 Paroxysmal atrial fibrillation; D63.1 Anemia in chronic kidney disease; B96.20 Unspecified Escherichia coli [E. coli] as the cause of diseases classified elsewhere; E11.22 Type 2 diabetes mellitus with diabetic chronic kidney disease; F41.9 Anxiety disorder, unspecified; F43.10 Post-traumatic stress disorder, unspecified; Z86.73 Personal history of transient ischemic attack (TIA), and cerebral infarction without residual deficits; Z91.013 Allergy to seafood; Z88.1 Allergy status to other antibiotic agents; Z88.8 Allergy status to other drugs, medicaments and biological substances; Z79.82 Long term (current) use of aspirin; Z79.2 Long term (current) use of antibiotics; Z79.899 Other long term (current) drug therapy; Z90.49 Acquired absence of other specified parts of digestive tract; Z99.2 Dependence on renal dialysis; Z90.710 Acquired absence of both cervix and uterus; Z90.89 Acquired absence of other organs; Z98.890 Other specified postprocedural states; Z98.84 Bariatric surgery status; Z95.0 Presence of cardiac pacemaker
CPT/HCPCS: 36415; 36416; 71045; 80053; 82805; 83605; 83690; 83735; 83880; 84484; 85025; 87040; 87077; 87081; 87149; 87186; 93005; 94760; J0456; J0692; J3370; J3370-JW; J3490; J7050; Q4081